=== PATIENT | female | born 1955 ===

== ENCOUNTER 2024-07-29 01:43 | Inpatient (IN) | payer MEDICARE, SELFPAY ==
[2024-07-28 19:17] VITALS: BP 153/103
[2024-07-28 20:00] VITALS: BP 129/85
[2024-07-28 20:42] VITALS: BP 129/85
[2024-07-28] MEDS: DILAUDID 0.25 MG IV ×2 (20:45→23:51)
[2024-07-28] MEDS: ZOFRAN 4 MG IV (20:45)
[2024-07-28 21:00] VITALS: BP 140/83
[2024-07-28 21:04] LABS: % Basophils 0.4 % (0-2); % Eosinophils 0.1 % (0-6); % Immature Granulocytes 0.8 % (0-0.5); % Lymphocytes 7.9 % (20.5-51.1); % Monocytes 4.7 % (1.7-9.3); % Neutrophils 86.1 % (42.2-75.2); Absolute Basophils 0.1 10^3/uL (0-0.2); Absolute Immature Granulocytes 0.1 10^3/uL (0-0.05); Absolute Lymphocytes 1.2 10^3/uL (1.2-3.4); Absolute Monocytes 0.7 10^3/uL (0.1-0.6); Absolute Neutrophils 13.2 10^3/uL (1.4-6.5); Hematocrit 37.1 % (37.0-47.0); Hemoglobin 12.8 g/dL (12.0-16.0); Mean Corp Hgb Conc. 34.5 g/dL (33.0-37.0); Mean Corpuscular Hgb 27.3 pg (27.0-31.0); Mean Corpuscular Volume 79.1 fL (81.0-99.0); Mean Platelet Volume 8.6 fL (7.4-10.4); Nucleated Red Blood Cells % 0 %; Platelet Count 377 10^3/uL (130-400); Red Blood Cell Count 4.69 10^6/uL (4.20-5.40); Red Cell Dist. Width 16.3 % (11.5-14.5); White Blood Cell Count 15.4 10^3/uL (4.8-10.8)
[2024-07-28 21:29] LABS: ALT (SGPT) 22 U/L (0-35); AST (SGOT) 33 U/L (14-36); Albumin 4.6 g/dl (3.5-5.0); Alkaline Phosphatase 102 U/L (38-126); Blood Urea Nitrogen 12 mg/dl (7-17); Carbon Dioxide 23 mmol/L (22-30); Chloride 104 mmol/L (98-107); Estimated Creatinine Clearance 73 ml/min; Glucose 99 mg/dl (70-99); Potassium 3.7 mmol/L (3.5-5.1); Sodium 138 mmol/L (135-145); Total Bilirubin 0.5 mg/dl (0.2-1.3); Total Protein 7.3 g/dl (6.3-8.2); eGFR > 60.00
[2024-07-28 22:00] VITALS: BP 137/79
[2024-07-28 23:00] VITALS: BP 132/87
--- NOTE | 2024-07-28 23:16 | ED.GENMED ---
History of Present Illness
General
Chief Complaint: Fall
Time Seen by Provider: 07/28/24 22:25
History of Present Illness
History of Present Illness:
Patient is a 69-year-old woman presenting to the emergency department after a fall. Patient states that she had a mechanical fall while putting on her shoes. She did not hit her head or lose consciousness. She is not on blood thinners. She was
having severe left thigh pain and left wrist pain. No numbness tingling. She does state that she has had bilateral knee replacement in the past before though the orthopedic surgeon is now in [place].
Phy Exam
Physical Exam
Physical Exam:
GENERAL: no acute distress
HEENT: atraumatic, extraocular muscles intact, no other obvious trauma
NECK: no midline tenderness, normal range of motion
BACK: no midline tenderness, no other obvious trauma
CHEST: no tenderness, no other obvious trauma
LUNGS: clear to auscultation bilaterally
CARDIOVASCULAR: regular rate and rhythm
ABDOMEN: soft, non-tender, no masses, no other obvious trauma
PELVIS: stable, no obvious injury
EXTREMITIES: Left wrist with tenderness to palpation over the radius, 2+ radial pulse, normal cap refill. Left thigh with tenderness over the mid thigh, no tenderness to the hip knee or ankle. Distal pulses intact. Otherwise moving all
extremities, distal pulses intact, no other obvious trauma
NEUROLOGIC: awake, alert x 3, no focal deficits
Course
Orders/Labs/Results
Orders:
Orders
07/28/24 20:14
Acetaminophen [Tylenol] 1,000 mg PO NOW STA
CR Femur - Left Min 2 Vw Urgent
Comment:
Reason For Exam: fall
CR Hip - LT w/wo Pel 2-3 Vw* Urgent
Comment:
Reason For Exam: fall
Include a pelvis x-ray?: Yes
CR Wrist - Left Min 3 Views Urgent
Comment:
Reason For Exam: fall
07/28/24 20:39
HYDROmorphone [Dilaudid] 0.25 mg IV NOW STA
07/28/24 20:41
Ondansetron Injectable [Zofran] 4 mg .ROUTE .STK-MED ONE
07/28/24 20:44
Ondansetron Injectable [Zofran] 4 mg IV NOW STA
07/28/24 20:55
Type And Crossmatch [Type+Screen] Urgent
Complete Blood Count/With Diff Urgent
Comprehensive Metabolic Panel Urgent
07/28/24 22:01
ABO2 Urgent
BBK Wristband Number:
Associate notified that ABO2 has been ordered: [id number]
Date: 07/28/24
Time: 21:52
Archeologist ID: [id number]
07/28/24 23:06
Sling Left-Treatment ONCE
HYDROmorphone [Dilaudid] 0.25 mg IV NOW STA
Abnormal Lab Results
07/28/24
20:55
WBC 15.4 H 10^3/uL
(4.8-10.8)
MCV 79.1 L fL
(81.0-99.0)
RDW 16.3 H %
(11.5-14.5)
Abs Immat Gran (auto) 0.1 H 10^3/uL
(0-0.05)
Absolute Neuts (auto) 13.2 H 10^3/uL
(1.4-6.5)
Absolute Monos (auto) 0.7 H 10^3/uL
(0.1-0.6)
Immature Gran % 0.8 H %
(0-0.5)
Neutrophils % 86.1 H %
(42.2-75.2)
Lymphocytes % 7.9 L %
(20.5-51.1)
07/28/24 20:55
07/28/24 20:55
Vital Signs
Initial and Last Documented VS:
Initial Vital Signs
Temp Pulse Resp
98.2 F 115 20
07/28/24 19:15 07/28/24 19:15 07/28/24 19:15
Last Documented Vital Signs
Temp Pulse Resp BP Pulse Ox
98.2 F 107 20 129/85 98
07/28/24 19:15 07/28/24 20:42 07/28/24 20:42 07/28/24 20:42 07/28/24 20:09
MDM/Problems Addressed
Differential Diagnosis Includes:
Patient is a 69-year-old woman presenting to the emergency department with a mechanical fall with left wrist and left thigh pain. On arrival vitals are unremarkable exam does show left wrist tenderness as well as left thigh tenderness. Concern for
fracture. Less likely to be dislocation of the wrist. X-ray obtained prior to my evaluation. Per my interpretation there is a impacted fracture of the left radius as well as a midshaft femur fracture. Will place patient in sugar-tong splint. I
did discuss with Dr. Carty who plans for OR tomorrow. Discussed with hospitalist who accepts patient to their service.
*Critical Care Note
Total Time (30-74mins, 75-104mins- exclusive of procedures): Not Applicable
ED Attending Note
-
Portions of this chart may have been created with voice recognition software.� Occasional wrong word or��sound alike� substitutions may have occurred due to the inherent limitations of voice recognition software.
Discharge Plan
Departure
Patient Disposition: Admit
Date of Disposition: 07/28/24
Time of Disposition: 23:11
Presentation/result/management discussed w/ accepting MD/DO: Hospitalist
Discharge Problem:
Femur fracture, left
Referrals:
Aden Hi MD [Family Provider] -
Interventions
Interventions:
*Risk Screen - Suicide Last Done: 07/28/24 19:15
*General Assessment Last Done: 07/28/24 19:15
*Neglect/Abuse Screening Last Done: 07/28/24 19:15
*ED- Fall Risk Assessment Last Done: 07/28/24 19:15
*ED COVID-19 Vaccine History Last Done: 07/28/24 19:15
ED-Musculoskeletal Assessment Last Done: 07/28/24 19:59
ED- Neurological Assessment Last Done: 07/28/24 20:09
ED-Skin Assessment Last Done: 07/28/24 20:09
Discharge Date and Time
Print Language: MOHAWK
--- NOTE | 2024-07-28 23:34 | HPS.HSE ---
Addendum entered and electronically signed by Hattie Oropeza MD 07/28/24 23:38:
History of merelgia peresthetica which she thinks contributed to the fall.
Original Note:
Family Physician
-
Family Physician: Aden Hi
Chief Complaint
-
fall
History of Present Illness
69-year-old female presenting after a fall. She had a mechanical fall putting on her shoes. She did not hit her head or lose consciousness. She is having severe left thigh pain and left wrist pain. No numbness or tingling.
She denies any prior issues with anesthesia. Denies chest pain or shortness of breath.
She denies smoking or alcohol use.
Medical History
Past Medical History
Past Medical History: Reports Other (Hypothyroidism, chronic rhinitis, lumbar spinal stenosis, cervical stenosis, osteopenia, anxiety, GERD)
Past Surgical History: Reports Tonsilectomy (Lumbar vertebroplasty, index finger fusions,)
Social History
Tobacco: Non-smoker
Alcohol: None
Drug: None
Family History
Family History: Not pertinent
Allergies / Home Medications
Allergies reflects when Allergies were last updated in [facility].
Home Medications with original date entered in [facility]
Allergy/Medication List:
Allergies
Allergy/AdvReac Type Severity Reaction Status Date / Time
No Known Allergies Allergy Unverified 07/28/24 19:23
Review of Systems
-
History Source: Patient
A 12 point ROS was completed and negative except as noted: Yes
Constitutional: Reports No Symptoms
EENT: Reports No Symptoms
Respiratory: Reports No Symptoms
Cardiac: Reports No Symptoms
Abdomen/GI: Reports No Symptoms
: Reports No Symptoms
Musculoskeletal: Reports No Symptoms
Skin: Reports No Symptoms
Neurological: Reports No Symptoms
Endocrine: Reports No Symptoms
Hematologic/Lymphatic: Reports No Symptoms
Psych: Reports No Symptoms
Physical Exam
Vital Signs
Vital Signs
Temp Pulse Resp BP Pulse Ox
98.2 F 107 20 129/85 98
07/28/24 19:15 07/28/24 20:42 07/28/24 20:42 07/28/24 20:42 07/28/24 20:09
Physical Exam
General: Well Developed, Well Nourished and No Apparent Distress
HEENT: NormoCephalic, Moist mucous membranes and Atraumatic
Respiratory: Clear
Cardiac: S1/S2 and Regular Rhythm; No Murmur or Rub
GI: Soft, Non Tender, Non Distended and Normal Bowel Sounds; No Organomegaly
Rectal: Deferred by Provider
Musculoskeletal: No Clubbing, No Cyanosis and No Edema
Skin: No Rash
Neuro: Nonfocal/grossly intact
Laboratory Results
-
07/28/24 20:55
07/28/24 20:55
Laboratory Results
Total Bilirubin 0.5 mg/dl (0.2-1.3) 07/28/24 20:55
AST 33 U/L (14-36) 07/28/24 20:55
ALT 22 U/L (0-35) 07/28/24 20:55
Alkaline Phosphatase 102 U/L (38-126) 07/28/24 20:55
Data Reviewed
-
Lab Data: Labs Reviewed by me
Old Records: Reviewed
Impression/Plan
-
IMPRESSION:
PLAN:
# Femoral diaphyseal fracture
- N.p.o. postmidnight
- Ortho consulted plan for surgery tomorrow
- Tylenol, naproxen, Dilaudid for pain
- Low risk for post cardiac complications after surgery
# Nondisplaced extra-articular impaction fracture of the left distal radius
- Sling placed
Hypothyroidism
- Continue levothyroxine
Chronic rhinitis
- Continue Flonase, Zyrtec
Lumbar spinal stenosis status post vertebroplasty
- Continue pregabalin
Cervical stenosis
Index finger effusions
Osteopenia
GERD
- Continue Protonix
Anxiety
- Continue Ativan
Full code
DVT prophylaxis�SCDs
N.p.o. past midnight
[2024-07-29] VITALS (15 sets, daily range): BP systolic 108–170; BP diastolic 70–94; BMI 27.9
[2024-07-29] MEDS: ZOFRAN 4 MG IV ×3 (00:06→15:43)
--- NOTE | 2024-07-29 02:30 | PTCARENOTE ---
PT a 69-year-old female arrived from ED at 01:56 from ED. Pt sustained a femoral diaphyseal fracture & a left nondisplaced extra-articular impaction fracture of the distal radius, splint placed after a mechanical fall at home. PMH Hypothyroidism,
chronic rhinitis, lumbar spinal stenosis, cervical stenosis, osteopenia, anxiety, GERD Past Surgical History: Tonsillectomy Lumbar vertebroplasty, index finger fusions. Ortho consult ordered Pt N.P.O. with oral meds and slips of clears. Pt AOx3, on
a static overlay, bed in a low position, call light in place, care on-going.
[2024-07-29] MEDS: ATIVAN 1 MG PO ×2 (03:21→22:19)
[2024-07-29] MEDS: SYNTHROID 75 MCG PO (05:00)
[2024-07-29 07:55] LABS: % Basophils 0.6 % (0-2); % Eosinophils 1.1 % (0-6); % Immature Granulocytes 0.4 % (0-0.5); % Lymphocytes 23.5 % (20.5-51.1); % Monocytes 6.7 % (1.7-9.3); % Neutrophils 67.7 % (42.2-75.2); Absolute Basophils 0.1 10^3/uL (0-0.2); Absolute Eosinophils 0.1 10^3/uL (0-0.7); Absolute Lymphocytes 2.4 10^3/uL (1.2-3.4); Absolute Monocytes 0.7 10^3/uL (0.1-0.6); Absolute Neutrophils 6.8 10^3/uL (1.4-6.5); Hemoglobin 12.8 g/dL (12.0-16.0); Mean Corp Hgb Conc. 34.6 g/dL (33.0-37.0); Mean Corpuscular Hgb 27.5 pg (27.0-31.0); Mean Corpuscular Volume 79.4 fL (81.0-99.0); Mean Platelet Volume 8.8 fL (7.4-10.4); Nucleated Red Blood Cells % 0 %; Platelet Count 360 10^3/uL (130-400); Red Blood Cell Count 4.66 10^6/uL (4.20-5.40); Red Cell Dist. Width 15.9 % (11.5-14.5)
--- NOTE | 2024-07-29 08:17 | CON.ORTHO ---
Consultation
-
Date/Time Consultation Requested: 07/29/24 02:20
Date/Time Consultation Performed: 07/29/24 07:45
Requesting Provider: Dr. Hattie Oropeza
Performing Provider: FERNANDO Butler
Reason for Consultation: Left femur fracture, left distal radius fracture
Consultation - Orthopedics
History
69-year-old female presented to outside hospital after mechanical fall sustained in her home. She reports immediate pain to her left thigh and left wrist and was transported EMS secondary to the inability bear weight and severe pain. Radiographs
show displaced femoral diaphyseal fracture as well as a left distal radius fracture. She was placed to a splint for her left upper extremity. She denies any prodromal pain. Denies any current paresthesias. History of bilateral knee replacement
left side 2003 and right side 2010. Reports closed injury denies other injury sustained
Allergies / Home Medications
Past Medical History
Past Medical History: Reports Other (Hypothyroidism, chronic rhinitis, lumbar spinal stenosis, cervical stenosis, osteopenia, anxiety, GERD)
Past Surgical History: Reports Tonsilectomy (Lumbar vertebroplasty, index finger fusions,) Left total knee replacement 2003, right total knee replacement 2010
Social History
Tobacco: Non-smoker
Alcohol: None
Drug: None
Family History
Family History: Not pertinent
Allergies / Home Medications
Allergies reflects when Allergies were last updated in [facility].
Home Medications with original date entered in [facility]
Allergy/Medication List:
Allergies
Allergy/AdvReac Type Severity Reaction Status Date / Time
No Known Allergies Allergy Unverified 07/28/24 19:23
�Medication �Instructions �Recorded
cetirizine 10 mg tablet (Zyrtec) 10 mg PO DAILY 07/28/24
erythromycin 5 mg/gram (0.5 %) eye 1 applic RIGHT EYE BID 07/28/24
ointment
fluticasone propionate 50 1 spray intranasal BID 07/28/24
mcg/actuation nasal
spray,suspension
ibuprofen-diphenhydramine citrate 0.5 tab PO HSPRN PRN mild pain 07/28/24
200 mg-38 mg tablet (Advil PM)
levothyroxine 75 mcg tablet 75 mcg PO DAILY 07/28/24
lorazepam 1 mg tablet 1 mg PO HS 07/28/24
naproxen 500 mg tablet 500 mg PO DAILY 07/28/24
omeprazole 40 mg capsule,delayed 40 mg PO DAILY 07/28/24
release
pregabalin 150 mg capsule 150 mg PO BID 07/28/24
Vital Signs / Lab Results
Temp Pulse Resp BP Pulse Ox
98.9 F 80 20 150/86 100
07/29/24 02:13 07/29/24 02:13 07/29/24 02:13 07/29/24 02:13 07/29/24 02:30
PHYSICAL EXAM:
Patient is well-nourished well-developed no acute distress conscious and oriented
Examination of the left lower extremity shows skin is intact. Her leg is in a shortened externally rotated position. The sensation motor function intact L3-S1. Nontender about her left knee
Examination of the left upper extremity showed an intact sugar-tong splint. Exposed fingers demonstrate intact motor and sensory function nontender about the shoulder
IMAGING:
X-rays taken of the left hip and femur show displaced diaphyseal femur fracture with left total knee arthroplasty without evidence of hardware complication
07/29/24 07:17
Assessment / Plan
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
Images were shown and discussed with the patient regarding their injury. The injury and respective operative and nonoperative interventions reviewed with the patient and respective family members to include the risks and benefits rehabilitation and
prognosis for each. The treatment and operative technique, postoperative follow-up, postoperative rehabilitation and surgical prognosis was reviewed in detail. After thorough discussion of potential treatment options the patient and respective
family members wish to proceed with operative intervention.
Patient is planned for OR today for left femur reduction internal fixation with Dr. Carty. Due to availability of her hand surgeon regarding her left distal radius this will be tentative for likely Thursday for open reduction internal fixation with
Dr. Gallegos
- 2 separate consents were completed and placed in the chart
- NPO
- Type and screen on file
- Antibiotics on-call the OR
-NWB to LUE; maintain current splint; elevation to reduce swelling
The patient was seen and evaluated by Dr. Carty who agrees with the assessment and plan
[2024-07-29 08:22] LABS: ALT (SGPT) 22 U/L (0-35); AST (SGOT) 39 U/L (14-36); Albumin 3.7 g/dl (3.5-5.0); Alkaline Phosphatase 84 U/L (38-126); Blood Urea Nitrogen 10 mg/dl (7-17); Calcium 9.3 mg/dl (8.4-10.2); Carbon Dioxide 23 mmol/L (22-30); Chloride 110 mmol/L (98-107); Estimated Creatinine Clearance 53 ml/min; Glucose 99 mg/dl (70-99); Potassium 4.1 mmol/L (3.5-5.1); Sodium 141 mmol/L (135-145); Total Bilirubin 0.7 mg/dl (0.2-1.3); Total Protein 6.4 g/dl (6.3-8.2); eGFR > 60.00
[2024-07-29] MEDS: PROTONIX 40 MG PO (08:51)
[2024-07-29] MEDS: LYRICA 150 MG PO ×2 (08:51→20:52)
[2024-07-29] MEDS: ZYRTEC 10 MG PO (08:51)
[2024-07-29] MEDS: NAPROSYN PO (08:52)
[2024-07-29] MEDS: DILAUDID 0.5 MG IV ×3 (08:54→19:54)
[2024-07-29] MEDS: ERYTHROMYCIN 0.5% OPHTHALMIC OINTMENT RIGHT EYE (08:59)
--- NOTE | 2024-07-29 09:15 | W.PN.HOSP.TC ---
Today's Communication/Plan
-
Add Zofran IV as needed
OR today
Assessment / Plan
Assessment / Plan
Gen-AAOx3, NAD
HEENT-NC, AT, anicteric, clear oral mm
Neck-supple
CV-reg, no M, +S1/S2
Lungs-clear B/L
Abd-soft, NT, ND
Ext-no edema
Musculoskeletal-no cyanosis, clubbing
Skin-warm and dry
Neuro-grossly non-focal
Psych-calm, cooperative
Acute traumatic displaced left femoral diaphysis fracture -due to trauma from fall, underlying osteoporosis.
Medically stable for surgery today. NPO. Continue analgesics. Complaining of nausea due to IV Dilaudid, Zofran ordered as needed.
Acute traumatic nondisplaced left distal radius fracture -due to fall, osteoporosis. Anticipate surgical correction on Thursday as per orthopedics.
Osteoporosis -she gets yearly infusions of zoledronic acid. On vitamin D 50,000 units every other week.
Hypothyroidism -levothyroxine.
Chronic rhinitis
Lumbar/cervical spinal stenosis
GERD
Anxiety disorder
Full code
Anticipated Discharge: > 48 hours
Subjective/Interval History
-
Date of Service: July 29, 2024
Patient seen and examined. Complaining of left leg pain. Complaining of Tanner wrap on arm being too tight.
Objective Data
-
Labs:
Laboratory Results
07/28/24 07/29/24
20:55 07:17
WBC 10.0
Hgb 12.8
Hct 37.0
Plt Count 360
Sodium 138 141
Potassium 3.7 4.1
Chloride 104 110 H
Carbon Dioxide 23 23
BUN 12 10
Creatinine 0.7 0.7
Glucose 99 99
Calcium 10.0 9.3
Total Bilirubin 0.5 0.7
AST 33 39 H
ALT 22 22
Alkaline Phosphatase 102 84
Vital Signs:
Vital Signs
Temp Pulse Resp BP Pulse Ox
98.1 F 81 16 170/89 97
07/29/24 08:00 07/29/24 08:00 07/29/24 08:00 07/29/24 08:00 07/29/24 08:00
I&O
07/28/24 07/29/24 07/30/24
06:59 06:59 06:59
Intake Total 0 / 0
Output Total 0 / 0
Balance 0 / 0
Review of Systems
-
History Source: Patient
All other systems: Reviewed and negative
--- NOTE | 2024-07-29 10:26 | CM ---
Patient seen at bedside. 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 Additional surgery next week per both patient and physician. Patient states she lives in a condo with 2 floors and has a first floor master. Patient stated
that her PCP is Dr. Peck and she uses the [facility] in [place]. Patient plan is to go to [facility] if possible at [facility] and then home. Patient daughter and son in law are helpful but work during the day. Patient has a walker, cane,
comode and hip kit. 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 CM spoke with [facility] liaison to assess patient and will send referral for review. Physician to request referral for PM&R. CM will continue to follow for discharge planning needs.
Plan; referral to [facility] pending acceptance watch for further needs.
[2024-07-29] MEDS: DEMEROL 12.5 MG IV (19:39)
[2024-07-29] MEDS: NSS 1000 IV (20:10)
--- NOTE | 2024-07-29 20:30 | PTCARENOTE ---
Patient returned from PACU via bed, post op L femur ORIF. Drsg x3 intact, proximal and distal with scant drainage. AAOx3, but drowsy. IVF infusing per order, pt on 2LNC. Assessment ongoing.
[2024-07-29] MEDS: ASPIRIN 325 MG PO (20:51)
[2024-07-29] MEDS: ERYTHROMYCIN 0.5% OPHTHALMIC OINTMENT 1 APPLIC RIGHT EYE (20:53)
[2024-07-29] MEDS: SENOKOT 17.2 MG PO (20:53)
[2024-07-29] MEDS: COLACE 100 MG PO (20:53)
[2024-07-30] VITALS (8 sets, daily range): BP systolic 104–146; BP diastolic 63–89; PULSE 93
[2024-07-30] MEDS: ANCEF 5 IV ×2 (00:19→10:33)
[2024-07-30] MEDS: SYNTHROID 75 MCG PO (05:08)
[2024-07-30 07:39] LABS: Hematocrit 33.7 % (37.0-47.0); Hemoglobin 11.3 g/dL (12.0-16.0)
[2024-07-30 08:01] LABS: Blood Urea Nitrogen 15 mg/dl (7-17); Carbon Dioxide 22 mmol/L (22-30); Chloride 108 mmol/L (98-107); Estimated Creatinine Clearance 53 ml/min; Glucose 144 mg/dl (70-99); Potassium 3.9 mmol/L (3.5-5.1); Sodium 137 mmol/L (135-145); eGFR > 60.00
[2024-07-30] MEDS: LYRICA 150 MG PO ×2 (09:09→20:27)
[2024-07-30] MEDS: SENOKOT 17.2 MG PO ×2 (09:09→20:27)
[2024-07-30] MEDS: ZYRTEC 10 MG PO (09:10)
[2024-07-30] MEDS: COLACE 100 MG PO ×2 (09:10→20:27)
[2024-07-30] MEDS: ASPIRIN 325 MG PO (09:10)
[2024-07-30] MEDS: PROTONIX 40 MG PO (09:10)
[2024-07-30] MEDS: NAPROSYN 500 MG PO (09:10)
[2024-07-30] MEDS: ERYTHROMYCIN 0.5% OPHTHALMIC OINTMENT 1 APPLIC RIGHT EYE ×2 (09:11→20:27)
--- NOTE | 2024-07-30 09:55 | W.PN.ORTHO ---
Today's Communication / Plan
-
69-year-old female POD #1 Left Femur Reduction Internal Fixation with Gamma Nail 07/29/[address] Carty. Also with left wrist nondisplaced, extra-articular impaction fracture of the distal radius.
- WBAT LLE. NWB LUE in sugar-tong splint. May consider platform walker for ambulatory assistance.
- PT/OT as tolerated.
- Aspirin 325mg once daily x 4 weeks for DVT prophylaxis.
- Hgb 11.3 this AM. Continue to monitor and trend.
- Ice and elevation for edema control. Pain control per primary team.
- Plan for left distal radius ORIF on Thursday under the direction of Dr. Gallegos. Consent completed in patient chart. NPO pMN 08/01/2024.
- Maintain left hip dressings x 7-10 days. [place] removed at 2 weeks post-op.
- Patient requesting [facility] at discharge. Consult placed to Dr. Thornton; also notified via [facility].
- Orthopedic surgery will continue to follow along.
Assessment
.
Distal Motor Intact: Yes
Dressing:
Primaseal dressing x 3 intact with scant contained bloody drainage.
Sugar-tong splint intact about LUE. Able to wiggle fingers. Capillary refill is less than 2 seconds.
Sensation intact to light touch.
Calf is soft and nontender to palpation.
Assessment:
POD #1 Left Femur Reduction Internal Fixation with Gamma Nail 07/29/[address] Carty.
Left wrist nondisplaced, extra-articular impaction fracture of the distal radius.
Plan
.
Surgery / Date: 07/29/2024 Left Femur Reduction Internal Fixation
DVT Prophylaxis: Aspirin
Activity:
Out of bed.
PT/OT as tolerated.
WBAT LLE, NWB LUE in sugar-tong splint.
Discharge Plan: Other
Discharge Information:
Patient requesting [facility].
Subjective
.
.:
Patient resting comfortably in bed. Reports that her pain is well controlled. Denies any new complaints or concerns at this time. Plan for left distal radius ORIF early next week.
Vital Signs and Labs
.
Vital Signs and Labs:
Lab Results
07/30/24 06:17
07/30/24 06:17
Temp Pulse Resp BP Pulse Ox
98.2 F 80 16 108/72 98
07/30/24 07:30 07/30/24 07:30 07/30/24 07:30 07/30/24 07:30 07/30/24 07:30
--- NOTE | 2024-07-30 11:02 | W.PN.HOSP.TC ---
Today's Communication/Plan
-
Continue current care
Assessment / Plan
Assessment / Plan
Gen-AAOx3, NAD
HEENT-NC, AT, anicteric, clear oral mm
Neck-supple
CV-reg, no M, +S1/S2
Lungs-clear B/L
Abd-soft, NT, ND
Ext-no edema
Musculoskeletal-no cyanosis, clubbing
Skin-warm and dry
Neuro-grossly non-focal
Psych-calm, cooperative
Acute traumatic displaced left femoral diaphysis fracture -due to trauma from fall, underlying osteoporosis. Stable postop left femur long gamma nail with distal interlocking x 07/29.
Continue PT/OT. Aspirin for DVT prophylaxis per orthopedics. Continue analgesics.
Acute traumatic nondisplaced left distal radius fracture -due to fall, osteoporosis. Anticipate surgical correction on Thursday as per orthopedics.
Osteoporosis -she gets yearly infusions of zoledronic acid. On vitamin D 50,000 units every other week.
Hypothyroidism -levothyroxine.
Chronic rhinitis
Lumbar/cervical spinal stenosis
GERD
Anxiety disorder
Full code
Dispo -anticipate acute rehab next week after repair of radial fracture.
Anticipated Discharge: > 48 hours
Subjective/Interval History
-
Date of Service: July 30, 2024
Patient seen and examined. No complaints.
Objective Data
-
Labs:
Laboratory Results
07/30/24
06:17
Hgb 11.3 L
Hct 33.7 L
Sodium 137
Potassium 3.9
Chloride 108 H
Carbon Dioxide 22
BUN 15
Creatinine 0.7
Glucose 144 H
Calcium 8.0 L
Vital Signs:
Vital Signs
Temp Pulse Resp BP Pulse Ox
98.2 F 80 16 108/72 98
07/30/24 07:30 07/30/24 07:30 07/30/24 07:30 07/30/24 07:30 07/30/24 07:30
I&O
07/29/24 07/30/24 07/31/24
06:59 06:59 06:59
Intake Total 0 / 0 1060 / 1060
Output Total 0 / 0 1025 / 1025
Balance 0 / 0 35 / 35
Review of Systems
-
History Source: Patient
All other systems: Reviewed and negative
[2024-07-30] MEDS: NSS IV (11:06)
[2024-07-30] MEDS: TYLENOL 650 MG PO ×2 (15:17→22:26)
[2024-07-30] MEDS: ATIVAN 1 MG PO (22:23)
[2024-07-31] MEDS: SYNTHROID 75 MCG PO (06:15)
[2024-07-31 07:44] VITALS: BP 143/78
[2024-07-31] MEDS: TYLENOL PO (08:31)
[2024-07-31] MEDS: ZYRTEC 10 MG PO (08:32)
[2024-07-31] MEDS: PROTONIX 40 MG PO (08:32)
[2024-07-31] MEDS: SENOKOT 17.2 MG PO (08:32)
[2024-07-31] MEDS: COLACE 100 MG PO (08:32)
[2024-07-31] MEDS: NAPROSYN PO (08:32)
[2024-07-31] MEDS: ERYTHROMYCIN 0.5% OPHTHALMIC OINTMENT RIGHT EYE ×3 (08:32→23:52)
[2024-07-31] MEDS: ASPIRIN 325 MG PO (08:32)
[2024-07-31] MEDS: LYRICA 150 MG PO ×2 (08:32→20:43)
--- NOTE | 2024-07-31 10:10 | W.PN.ORTHO ---
Today's Communication / Plan
-
69-year-old female POD #2 Left Femur Reduction Internal Fixation with Gamma Nail 07/29/[address] Carty. Also with left wrist nondisplaced, extra-articular impaction fracture of the distal radius.
- WBAT LLE. NWB LUE in sugar-tong splint; splint readjusted today and extra padding applied. May consider platform walker for ambulatory assistance.
- PT/OT as tolerated.
- Aspirin 325mg once daily x 4 weeks for DVT prophylaxis.
- Ice therapy and elevation for edema control. Pain control per primary team.
- Plan for left distal radius ORIF on Thursday under the direction of Dr. Gallegos. Consent completed in patient chart. NPO pMN 08/01/2024. Case posted with OR front attendant. Pre-op ABX OCTOR.
- Maintain left hip dressings x 7-10 days post-op. [place] removed at 2 weeks post-op.
- Patient requesting [facility] at discharge. Consult placed to Dr. Thornton; also notified via [facility]. Appreciate CM.
- Orthopedic surgery will continue to follow along.
Assessment
.
Distal Motor Intact: Yes
Dressing:
Primaseal dressing x 3 intact with scant contained bloody drainage.
Sugar-tong splint intact about LUE. Able to wiggle fingers. Capillary refill is less than 2 seconds.
Sensation intact to light touch.
Calf is soft and nontender to palpation. Able to plantarflex and dorsiflex left ankle.
Assessment:
1) POD #2 Left Femur Reduction Internal Fixation with Gamma Nail 07/29/[address] Carty.
2) Left wrist nondisplaced, extra-articular impaction fracture of the distal radius.
Plan
.
Surgery / Date: 07/29/2024 Left Femur Reduction Internal Fixation
DVT Prophylaxis: Aspirin
Activity:
Out of bed.
PT/OT as tolerated.
WBAT LLE, NWB LUE in sugar-tong splint.
Discharge Plan: Rehab
Discharge Information:
Patient requesting [facility] at D/C. Appreciate CM.
Subjective
.
.:
Patient resting comfortably in bedside chair. Denies any new complaints or concerns at this time. Plan for left distal radius ORIF Thursday under the direction of Dr. Gallegos.
Vital Signs and Labs
.
Vital Signs and Labs:
Lab Results
07/30/24 06:17
07/30/24 06:17
Temp Pulse Resp BP Pulse Ox
98.1 F 76 16 143/78 100
07/31/24 07:44 07/31/24 07:44 07/31/24 07:44 07/31/24 07:44 07/31/24 07:44
--- NOTE | 2024-07-31 11:17 | W.PN.HOSP.TC ---
Today's Communication/Plan
-
Bowel regimen
Continue PT/OT
Assessment / Plan
Assessment / Plan
Gen-AAOx3, NAD
HEENT-NC, AT, anicteric, clear oral mm
Neck-supple
CV-reg, no M, +S1/S2
Lungs-clear B/L
Abd-soft, NT, ND
Ext-no edema
Musculoskeletal-no cyanosis, clubbing
Skin-warm and dry
Neuro-grossly non-focal
Psych-calm, cooperative
Acute traumatic displaced left femoral diaphysis fracture -due to trauma from fall, underlying osteoporosis. Stable postop left femur long gamma nail with distal interlocking x , 07/29.
Continue PT/OT. Aspirin for DVT prophylaxis per orthopedics. Continue analgesics.
Acute traumatic nondisplaced left distal radius fracture -due to fall, osteoporosis. Anticipate surgical correction on Wednesday 08/02 as per orthopedics.
Osteoporosis -she gets yearly infusions of zoledronic acid. On vitamin D 50,000 units every other week.
Hypothyroidism -levothyroxine.
Chronic rhinitis
Lumbar/cervical spinal stenosis
GERD
Anxiety disorder
Full code
Dispo -anticipate acute rehab next week after repair of radial fracture.
Anticipated Discharge: > 48 hours
Subjective/Interval History
-
Date of Service: July 31, 2024
Patient seen and examined. Pain is controlled.
Objective Data
-
Vital Signs:
Vital Signs
Temp Pulse Resp BP Pulse Ox
98.1 F 76 16 143/78 100
07/31/24 07:44 07/31/24 07:44 07/31/24 07:44 07/31/24 07:44 07/31/24 07:44
I&O
07/30/24 07/31/24 08/01/24
06:59 06:59 06:59
Intake Total 1060 / 1060 1659
Output Total 1025 / 1025
Balance 1659
Review of Systems
-
History Source: Patient
All other systems: Reviewed and negative
[2024-07-31] MEDS: MIRALAX 17 GRAMS PO (11:31)
[2024-07-31 15:38] VITALS: BP 115/69
[2024-07-31] MEDS: ATIVAN 1 MG PO (20:44)
[2024-07-31] MEDS: TYLENOL 650 MG PO (20:44)
[2024-07-31] MEDS: COLACE PO (20:53)
[2024-07-31] MEDS: SENOKOT PO (20:53)
[2024-07-31] MEDS: ROXICODONE 5 MG PO (21:52)
[2024-07-31 23:25] VITALS: BP 108/67
[2024-07-31] MEDS: NAPROSYN 500 MG PO (23:49)
[2024-08-01] MEDS: SYNTHROID 75 MCG PO (07:26)
[2024-08-01 07:45] VITALS: BP 125/68
[2024-08-01] MEDS: PROTONIX 40 MG PO (08:28)
[2024-08-01] MEDS: ASPIRIN 325 MG PO (08:28)
[2024-08-01] MEDS: NAPROSYN 500 MG PO (08:28)
[2024-08-01] MEDS: ERYTHROMYCIN 0.5% OPHTHALMIC OINTMENT RIGHT EYE (08:29)
[2024-08-01] MEDS: LYRICA 150 MG PO ×2 (08:29→20:04)
[2024-08-01] MEDS: COLACE 100 MG PO ×2 (08:29→20:04)
[2024-08-01] MEDS: ZYRTEC 10 MG PO (08:30)
[2024-08-01] MEDS: SENOKOT PO ×2 (08:30→20:05)
--- NOTE | 2024-08-01 08:59 | W.PN.UPDATE ---
Update Note
Progress Note Update
P.atient resting comfortably in bed. Now POD#3 gamma nail fixation of her left femur (August 05- Carloz). Afeb. Dressings x [address] left thigh with minimal strikethrough distally. PT/OT going well. WBAT LLE on platform walker. DNVI LLE. Also
with impacted extra-articular nondisplaced fracture of the LEFT distal radius. Remains in a sugar-tong splint. Desires fixation of her left wrist, which has been tentatively scheduled for tomorrow (Thursday) under the direction of
Rosy (ORIF). She has been previously consented. Remain in splint, NWB for now LUE (other than platform walker). DNVI LUE. OR aware. NPO pMN tonight.
--- NOTE | 2024-08-01 09:18 | CM ---
Reviewed the chart notes. Patient is scheduled to go to OR tomorrow for fixation of her left wrist. PMR consult pending. CM continues to be available to patient/family and is monitoring medical plan for needs at discharge.
Plan: [facility]. [facility]eep reviewing.
[2024-08-01 13:05] VITALS: BP 131/80; PULSE 65; O2SAT 94
--- NOTE | 2024-08-01 13:54 | W.PN.HOSP.TC ---
Today's Communication/Plan
-
Assessment / Plan
Assessment / Plan
Gen-AAOx3, NAD
HEENT-NC, AT, anicteric, clear oral mm
Neck-supple
CV-reg, rate controlled around 80
Lungs-no accessory muscle use, no increased work of breathing, no audible wheezing
Abd-nondistended, no active vomiting
Ext-no edema
Musculoskeletal-no cyanosis, left upper extremity forearm splint in place
Skin-warm and dry
Neuro-grossly non-focal
Psych-calm, cooperative
Acute traumatic displaced left femoral diaphysis fracture -due to trauma from fall, underlying osteoporosis. Stable postop left femur long gamma nail with distal interlocking x 2, 07/29.
Continue PT/OT. Aspirin for DVT prophylaxis per orthopedics. Continue analgesics, ambulating with platform walker, anticipate SNF for rehab
Acute traumatic nondisplaced left distal radius fracture -due to fall, osteoporosis. Anticipate surgical correction on Wednesday 08/02 as per orthopedics, nonweightbearing left upper extremity for now
Osteoporosis -she gets yearly infusions of zoledronic acid. On vitamin D 50,000 units every other week.
Hypothyroidism -levothyroxine.
Chronic rhinitis
Lumbar/cervical spinal stenosis
GERD
Anxiety disorder
Full code
Dispo -anticipate acute rehab next week after repair of radial fracture.
Anticipated Discharge: 24 - 48 hours
Subjective/Interval History
-
Date of Service: August 01, 2024
Patient was seen and examined at bedside this morning. She is feeling generally well. Awaiting left wrist ORIF tomorrow.
Objective Data
-
Vital Signs:
Vital Signs
Temp Pulse Resp BP Pulse Ox
97.9 F 80 16 125/68 98
08/01/24 07:45 08/01/24 07:45 08/01/24 07:45 08/01/24 07:45 08/01/24 08:25
I&O
07/31/24 08/01/24 08/02/24
06:59 06:59 06:59
Intake Total 1660 / 1660 480 / 480
Balance 1660 / 1660 480 / 480
Review of Systems
-
History Source: Patient
All other systems: Reviewed and negative
Physical Exam
-
General: No Apparent Distress
[2024-08-01 15:30] VITALS: BP 117/69
--- NOTE | 2024-08-01 16:30 | CON.MD ---
Documented by User: Letty Hummel PA-C 08/01/24 16:58
Consultation - Medical
-
Referring Provider: Shon Alegre
Chief Complaint: Ambulatory dysfunction, status post left hip ORIF
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
with acute traumatic displaced left femoral diaphysis fracture above her left total knee replacement and radial fracture due to a traumatic fall. On 07/29/2024 she underwent left femur reduction internal fixation with gamma nail x [address] Trivedi
Carloz. Anticipated surgical correction for nondisplaced left distal radius fracture scheduled for 08/[address] Gallegos. Per Ortho�she is weightbearing as tolerated on the left lower extremity, nonweightbearing on the left upper extremity in
sugar-tong splint. May consider platform walker for ambulatory assistance. DVT prophylaxis scheduled for aspirin 325 twice daily x 4 weeks. Ice therapy and elevation for edema control.
Past Medical History: osteoporosis on yearly infusion of Zoledronic acid and vitamin D 50,000 units every other week, anxiety, lumbar and cervical stenosis, GERD, hypothyroidism, chronic rhinitis)
Procedure History: Left femur long gamma nail with distal interlocking x 2,
Family History: non contributory
Social History:
Functional Level Premorbidly: Independent with all activities
Functional Level Currently: Eating�set up, grooming, toileting�min assist, lower extremity self-care�mod assist, toilet transfer�min assist, patient ambulated 25 feet and 10 feet x 2 with HW and min assist/contact-guard
Tobacco: Denies
Alcohol: Denies
Drug use: Denies
Lives with: alone
24-hour assistance available:
Number of floors: Multilevel
# steps to enter: 3
# steps to second floor:FF
Potential First floor set up:
Driving: yes
Occupation: works dye expert as RN
Allergies:
Allergy/AdvReac Type Severity Reaction Status Date / Time
No Known Allergies Allergy Unverified 07/28/24 19:23
Review of Systems:
Constitutional: (x) Normal _
Eye: (x) Normal _
Ear/Nose/Throat: (x) Normal _
Respiratory: (x) Normal _
Cardiovascular: (x) Normal _
Gastrointestinal: (x) abNormal _GERD
Genitourinary: (x) Normal _
Musculoskeletal: (x) abNormal _left femoral shaft fracture status post ORIF, left hip pain, left wrist fracture
Integumentary: (x) Normal _
Neurologic: (x) Normal _
Psychiatric: (x) abNormal _anxiety
Endocrine: (x) Normal _
Hematologic/Lymphatic: (x) Normal _
Allergic/Immunologic: (x) Normal _
Medications:
Active Current Visit Medication List
Category Date Time Status
Acetaminophen [Tylenol] Med 07/29/24 02:20 Active
650 mg PO Q4HPRN PRN
Aspirin Med 07/29/24 18:00 Active
325 mg PO DAILY
CeFAZolin 2 GRAM [Ancef] Med 08/02/24 07:00 Active
2 grams in 10 ml IV PRE PROCEDURE
Cetirizine HCl [Zyrtec] Med 07/29/24 08:00 Active
10 mg PO DAILY
Docusate Sodium [Colace] Med 07/29/24 20:00 Active
100 mg PO BID
Erythromycin (Ilotycin) [Erythromycin 0.5% Ophthalmic Med 07/29/24 08:00 Active
Ointment]
1 applic RIGHT EYE BID
Flush (0.9% Sodium Chloride) [Flush (Nss)] Med 07/28/24 23:00 Active
See Dose Instructions IV PER PROTOCOL
HYDROmorphone [Dilaudid] Med 07/29/24 02:20 Active
0.5 mg IV Q4HPRN PRN
Levothyroxine [Synthroid] Med 07/29/24 06:00 Active
75 mcg PO DAILY @ 0600
Lorazepam [Ativan] Med 07/29/24 22:00 Active
1 mg PO HS
Mag Hydrox/Al Hydrox/Simeth [Maalox] Med 07/29/24 19:11 Active
30 ml PO Q4HPRN PRN
Naproxen [Naprosyn] Med 07/29/24 08:00 Active
500 mg PO DAILY
Ondansetron Injectable [Zofran] Med 07/29/24 09:02 Active
4 mg IV Q6HPRN PRN
Ondansetron Injectable [Zofran] Med 07/29/24 19:11 Active
4 mg IV Q6HPRN PRN
Oxycodone [Roxicodone] Med 07/29/24 19:11 Active
10 mg PO Q4HPRN PRN
Oxycodone [Roxicodone] Med 07/29/24 19:11 Active
5 mg PO Q4HPRN PRN
Pantoprazole [Protonix] Med 07/29/24 08:00 Active
40 mg PO DAILY
Polyethylene Glycol Powder [Miralax] Med 07/30/24 11:07 Active
17 grams PO DAILYPRN PRN
Pregabalin [Lyrica] Med 07/29/24 08:00 Active
150 mg PO BID
Sennosides [Senokot] Med 07/29/24 20:00 Active
17.2 mg PO BID
Vitals:
Temp Pulse Resp BP Pulse Ox
98.4 F 92 18 117/69 100
08/01/24 15:30 08/01/24 15:30 08/01/24 15:30 08/01/24 15:30 08/01/24 15:30
Height 4 ft 8 in
Actual Weight 56.427 kg
Body Mass Index (BMI) 27.9
Physical Exam:
General Appearance/Observation: Well-developed, well-nourished individual in no apparent distress.
Pain/Comfort Assessment: hip
Mood/Affect: Appropriate
Integumentary/Operative Site: Left hip with dressing
Pressure Ulcer Evaluation: absent over heels.
Other Type of Wound: absent
Eyes: Conjunctiva/Lids: normal Pupils: pupils equal round and reactive to light and Accommodation
Ears/Nose/Throat: oral mucosa moist, throat clear. Lips/Teeth/Gums: normal
Neck: No muscle spasm or tenderness
Cardiovascular: Heart: regular, no murmur
Pulses: dorsalis pedis 2+ bilaterally
Respiratory: Respiratory Effort/Chest Expansion: normal Auscultation: Clear to auscultation bilaterally
Gastrointestinal: abdomen not tender, no distension, normal abdominal bowel sounds
Genitourinary: No Lucio
Extremities: left thigh: None Cyanosis: None Trophic changes: None
Neurology Exam:
Orientation: Alert, Oriented to self, Time, Place
Memory: Intact for immediate medical concerns
Comprehension: Intact
Two step command: Intact
Naming: Intact
Cranial Nerves:
CNII: Pupillary light reflex: Intact Visual Field:NT
CN III, IV, : Extraocular muscles: Intact
CN V: Facial Sensation at Forehead: Intact, Maxilla: Intact, Mandible: Intact
CN VII: Facial movement: Symmetric
CN VIII: Hearing: Normal
CN IX/X: Speech & swallow: Normal, Position of Uvula: Midline
CN XI: Shoulder shrug: Symmetric
CN XII: Tongue protrusion: Midline
Sensory:
Light touch: Intact in right upper and bilateral lower extremities
Reflexes:
Biceps: 2+ right, deferred.
Brachioradialis: 2+ right, deferred left
Triceps: 2+ right, deferred left
Patellar: 2+ bilaterally
Achilles: 2+ bilaterally
Babinski: Down going bilaterally
Dani: Negative bilaterally
Cerebellar: Dysmetria/Ataxia: None
Musculoskeletal:
Motor: (Manual muscle scale 0-5)
Muscle SA EF WE EE FF FA HF KE DF EHL PF
Right 5 5 5 5 5 5 5 5 5 5 5
Left 5 NT NT NT NT NT 3 3 5 5 5
Tone: Normal in all extremities
Range of Motion: Passively within normal limits in all extremities
Lab Results:
Labs
WBC 10.0 10^3/uL (4.8-10.8) 07/29/24 07:17
RBC 4.66 10^6/uL (4.20-5.40) 07/29/24 07:17
Hgb 11.3 g/dL (12.0-16.0) L 07/30/24 06:17
Hct 33.7 % (37.0-47.0) L 07/30/24 06:17
MCV 79.4 fL (81.0-99.0) L 07/29/24 07:17
MCH 27.5 pg (27.0-31.0) 07/29/24 07:17
MCHC 34.6 g/dL (33.0-37.0) 07/29/24 07:17
RDW 15.9 % (11.5-14.5) H 07/29/24 07:17
Plt Count 360 10^3/uL (130-400) 07/29/24 07:17
MPV 8.8 fL (7.4-10.4) 07/29/24 07:17
Abs Immat Gran (auto) 0.0 10^3/uL (0-0.05) 07/29/24 07:17
Absolute Neuts (auto) 6.8 10^3/uL (1.4-6.5) H 07/29/24 07:17
Absolute Lymphs (auto) 2.4 10^3/uL (1.2-3.4) 07/29/24 07:17
Absolute Monos (auto) 0.7 10^3/uL (0.1-0.6) H 07/29/24 07:17
Absolute Eos (auto) 0.1 10^3/uL (0-0.7) 07/29/24 07:17
Absolute Basos (auto) 0.1 10^3/uL (0-0.2) 07/29/24 07:17
Immature Gran % 0.4 % (0-0.5) 07/29/24 07:17
Neutrophils % 67.7 % (42.2-75.2) 07/29/24 07:17
Lymphocytes % 23.5 % (20.5-51.1) 07/29/24 07:17
Monocytes % 6.7 % (1.7-9.3) 07/29/24 07:17
Eosinophils % 1.1 % (0-6) 07/29/24 07:17
Basophils % 0.6 % (0-2) 07/29/24 07:17
Nucleated RBC % 0 % 07/29/24 07:17
Sodium 137 mmol/L (135-145) 07/30/24 06:17
Potassium 3.9 mmol/L (3.5-5.1) 07/30/24 06:17
Chloride 108 mmol/L (98-107) H 07/30/24 06:17
Carbon Dioxide 22 mmol/L (22-30) 07/30/24 06:17
BUN 15 mg/dl (7-17) 07/30/24 06:17
Creatinine 0.7 mg/dL (0.6-1.0) 07/30/24 06:17
Estimated Creat Clear 53 ml/min 07/30/24 06:17
eGFR > 60.00 07/30/24 06:17
Glucose 144 mg/dl (70-99) H 07/30/24 06:17
Calcium 8.0 mg/dl (8.4-10.2) L 07/30/24 06:17
Total Bilirubin 0.7 mg/dl (0.2-1.3) 07/29/24 07:17
AST 39 U/L (14-36) H 07/29/24 07:17
ALT 22 U/L (0-35) 07/29/24 07:17
Alkaline Phosphatase 84 U/L (38-126) 07/29/24 07:17
Total Protein 6.4 g/dl (6.3-8.2) 07/29/24 07:17
Albumin 3.7 g/dl (3.5-5.0) 07/29/24 07:17
Blood Type B POS 07/28/24 20:55
Blood Type Confirm B POS 07/28/24 22:01
Antibody Screen Negative (Negative) 07/28/24 20:55
Diagnostic Results: as per HPI
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 Carty and scheduled for left wrist ORIF- 08/[address] Gallegos
Plan
PM&R PT/OT to increase independence with ADLs, improve balance, coordination, endurance, strength, mobility, community reintegration, decreased burden of care on others and family education.
Ambulatory dysfunction: Continue PT/OT
Left femur ORIF with gamma nailing�07/[address] Carty: Weightbearing as tolerated left lower extremity. Aspirin 325 mg once daily x 4 for DVT prophylaxis. Ice therapy and elevation for edema control. Left hip dressing x 7-10 days postop.
Jessie removal at 2 weeks postop.
Left wrist nondisplaced fracture: ORIF scheduled for 08/[address] Gallegos. No weightbearing on left upper extremity in sugar�tong splint
Hypothyroidism: levothyroxine
Anemia: Likely multifactorial and post-op. Hgb 11.3. Monitor
Psych/anxiety: Lorazepam 1 mg at bedtime. Monitor mood, adjust medications as needed.
Skin: monitor for pressure sores/rashes/lesions.
Pain: acetaminophen 650 mg every 6 hours as needed or oxycodone as needed. , Pregabalin 150 twice daily, hydromorphone 0.5 IV every 4 hours as needed
Bowel: Colace and Senna, PRN bisacodyl.
Bladder: Time void, PVRs, PRN straight cath.
GI Prophylaxis: Pantoprazole 40 mg daily
DVT Prophylaxis: Aspirin 325 daily
Pulmonary: Incentive spirometry
Safety: Continue to reinforce assistance with all transfers.
Code Status: Full code
Dispo (date/plan/equipment needs): Home with family care. Social history reviewed.
Functional and Medical Goals: Modified Independent with ADL�s, ambulation, transfers.
Discharge Destination: Acute inpatient rehabilitation once medically stable and cleared from ortho
Summary of recommendations: Will benefit from acute inpatient rehabilitation PT/OT to increase independence with ADLs, improve balance, coordination, endurance, strength, mobility, community reintegration, decreased burden of care on others and
family education.
Ambulatory dysfunction: Continue PT/OT
Left femur ORIF with gamma nailing�07/[address] Carty: Weightbearing as tolerated left lower extremity. Aspirin 325 mg once daily x 4 for DVT prophylaxis. Ice therapy and elevation for edema control. Left hip dressing x 7-10 days postop.
Jessie removal at 2 weeks postop.
Pain: acetaminophen 650 mg every 6 hours as needed or oxycodone as needed. , Pregabalin 150 twice daily, hydromorphone 0.5 IV every 4 hours as needed. Pain to be under control on p.o. medications for at least 24 hours prior to discharge.
Bowel: Colace and Senna, PRN bisacodyl.
Bladder: Time void, PVRs, PRN straight cath.
DVT Prophylaxis: Aspirin 325 daily x 4 weeks. Ortho- please comment, if okay to switched to Lovenox sc while inpatient rehab with resumption of ASA on discharge
Thank you for allowing me to care for your patient. Please contact me with any questions or concerns.

Documented by User: Aquiles Mcclure MD 08/01/24 17:17
Consultation - Medical
-
Referring Provider: Shon Alegre
Chief Complaint: Ambulatory dysfunction, status post left hip ORIF
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
brought to [facility] on 07/28 evening after a fall at home. States she was trying to put on shoes when she tipped over and landed on her side and felt the 'crack' in her left thigh. Brought to the ER and noted with acute traumatic
displaced left femoral diaphysis fracture above her left total knee replacement and left distal radial fracture.
On 07/29/2024 she underwent left femur reduction internal fixation with long gamma nail and distal interlocking screws x [address] Farooq Carty. Anticipated surgical correction for nondisplaced left distal radius fracture scheduled for 08/[address] Gallegos. Per Ortho�she is weightbearing as tolerated on the left lower extremity, nonweightbearing on the left upper extremity in sugar-tong splint. May consider platform walker for ambulatory assistance. DVT prophylaxis scheduled for aspirin
325 twice daily x 4 weeks. Ice therapy and elevation for edema control.
Patient seen at bedside by me today and sitting up in chair. States pain is controlled well in the left thigh and hip, no radiation distally and no numbness or paresthesias. Still pain in the radius and base of the left thumb, but no numbness or
tingling in the fingers or hand.
Past Medical History: osteoporosis on yearly infusion of Zoledronic acid and vitamin D 50,000 units every other week, anxiety, lumbar and cervical stenosis, GERD, hypothyroidism, chronic rhinitis)
Procedure History: Left femur long gamma nail with distal interlocking x 2,
Family History: non contributory
Social History:
Functional Level Premorbidly: Independent with all activities
Functional Level Currently: Eating�set up, grooming, toileting�min assist, lower extremity self-care�mod assist, toilet transfer�min assist, patient ambulated 25 feet and 10 feet x 2 with HW and min assist/contact-guard
Tobacco: Denies
Alcohol: Denies
Drug use: Denies
Lives with: alone
24-hour assistance available:
Number of floors: Multilevel
# steps to enter: 3
# steps to second floor:FF
Potential First floor set up: YES - has first floor master bedroom and bath.
Driving: yes
Occupation: works dye expert as RN
Allergies:
Allergy/AdvReac Type Severity Reaction Status Date / Time
No Known Allergies Allergy Unverified 07/28/24 19:23
Review of Systems:
Constitutional: (x) Normal _
Eye: (x) Normal _
Ear/Nose/Throat: (x) Normal _
Respiratory: (x) Normal _
Cardiovascular: (x) Normal _
Gastrointestinal: (x) abNormal _GERD
Genitourinary: (x) Normal _
Musculoskeletal: (x) abNormal _left femoral shaft fracture status post ORIF, left hip pain, left wrist fracture
Integumentary: (x) Normal _
Neurologic: (x) Normal _
Psychiatric: (x) abNormal _anxiety
Endocrine: (x) Normal _
Hematologic/Lymphatic: (x) Normal _
Allergic/Immunologic: (x) Normal _
Medications:
Active Current Visit Medication List
Category Date Time Status
Acetaminophen [Tylenol] Med 07/29/24 02:20 Active
650 mg PO Q4HPRN PRN
Aspirin Med 07/29/24 18:00 Active
325 mg PO DAILY
CeFAZolin 2 GRAM [Ancef] Med 08/02/24 07:00 Active
2 grams in 10 ml IV PRE PROCEDURE
Cetirizine HCl [Zyrtec] Med 07/29/24 08:00 Active
10 mg PO DAILY
Docusate Sodium [Colace] Med 07/29/24 20:00 Active
100 mg PO BID
Erythromycin (Ilotycin) [Erythromycin 0.5% Ophthalmic Med 07/29/24 08:00 Active
Ointment]
1 applic RIGHT EYE BID
Flush (0.9% Sodium Chloride) [Flush (Nss)] Med 07/28/24 23:00 Active
See Dose Instructions IV PER PROTOCOL
HYDROmorphone [Dilaudid] Med 07/29/24 02:20 Active
0.5 mg IV Q4HPRN PRN
Levothyroxine [Synthroid] Med 07/29/24 06:00 Active
75 mcg PO DAILY @ 0600
Lorazepam [Ativan] Med 07/29/24 22:00 Active
1 mg PO HS
Mag Hydrox/Al Hydrox/Simeth [Maalox] Med 07/29/24 19:11 Active
30 ml PO Q4HPRN PRN
Naproxen [Naprosyn] Med 07/29/24 08:00 Active
500 mg PO DAILY
Ondansetron Injectable [Zofran] Med 07/29/24 09:02 Active
4 mg IV Q6HPRN PRN
Ondansetron Injectable [Zofran] Med 07/29/24 19:11 Active
4 mg IV Q6HPRN PRN
Oxycodone [Roxicodone] Med 07/29/24 19:11 Active
10 mg PO Q4HPRN PRN
Oxycodone [Roxicodone] Med 07/29/24 19:11 Active
5 mg PO Q4HPRN PRN
Pantoprazole [Protonix] Med 07/29/24 08:00 Active
40 mg PO DAILY
Polyethylene Glycol Powder [Miralax] Med 07/30/24 11:07 Active
17 grams PO DAILYPRN PRN
Pregabalin [Lyrica] Med 07/29/24 08:00 Active
150 mg PO BID
Sennosides [Senokot] Med 07/29/24 20:00 Active
17.2 mg PO BID
Vitals:
Temp Pulse Resp BP Pulse Ox
98.4 F 92 18 117/69 100
08/01/24 15:30 08/01/24 15:30 08/01/24 15:30 08/01/24 15:30 08/01/24 15:30
Height 4 ft 8 in
Actual Weight 56.427 kg
Body Mass Index (BMI) 27.9
Physical Exam:
General Appearance/Observation: Well-developed, well-nourished individual in no apparent distress.
Pain/Comfort Assessment: Left wrist
Mood/Affect: Appropriate
Integumentary/Operative Site: Left hip with dressing but clean. Left wrist in splint.
Pressure Ulcer Evaluation: absent over heels.
Other Type of Wound: absent
Eyes: Conjunctiva/Lids: normal Pupils: pupils equal round and reactive to light and Accommodation
Ears/Nose/Throat: oral mucosa moist, throat clear. Lips/Teeth/Gums: normal
Neck: No muscle spasm or tenderness
Cardiovascular: Heart: regular, no murmur
Pulses: dorsalis pedis 2+ bilaterally
Respiratory: Respiratory Effort/Chest Expansion: normal Auscultation: Clear to auscultation bilaterally
Gastrointestinal: abdomen not tender, no distension, normal abdominal bowel sounds
Genitourinary: No Lucio
Extremities: left thigh:minimal swelling, no distal swelling no calf tenderness. Cyanosis: None Trophic changes: None
Neurology Exam:
Orientation: Alert, Oriented to self, Time, Place
Memory: Intact for immediate medical concerns
Comprehension: Intact
Two step command: Intact
Naming: Intact
Cranial Nerves: - Intact and symmetric
Sensory:
Light touch: Intact in bilateral fingers and bilateral lower extremities.
Reflexes:
Achilles: 1+ bilaterally
Babinski: Down going bilaterally
Dani: Negative bilaterally
Cerebellar: Dysmetria/Ataxia: None
Musculoskeletal:
Motor: (Manual muscle scale 0-5)
Muscle SA EF WE EE FF FA HF KE DF EHL PF
Right 5 5 5 5 5 5 5 5 5 5 5
Left 5 NT NT NT NT NT 3 3 5 5 5
Able to lift left leg slightly off the footrest.
Tone: Normal in all extremities
Range of Motion: Passively within normal limits in all extremities
Lab Results:
Labs
WBC 10.0 10^3/uL (4.8-10.8) 07/29/24 07:17
RBC 4.66 10^6/uL (4.20-5.40) 07/29/24 07:17
Hgb 11.3 g/dL (12.0-16.0) L 07/30/24 06:17
Hct 33.7 % (37.0-47.0) L 07/30/24 06:17
MCV 79.4 fL (81.0-99.0) L 07/29/24 07:17
MCH 27.5 pg (27.0-31.0) 07/29/24 07:17
MCHC 34.6 g/dL (33.0-37.0) 07/29/24 07:17
RDW 15.9 % (11.5-14.5) H 07/29/24 07:17
Plt Count 360 10^3/uL (130-400) 07/29/24 07:17
MPV 8.8 fL (7.4-10.4) 07/29/24 07:17
Abs Immat Gran (auto) 0.0 10^3/uL (0-0.05) 07/29/24 07:17
Absolute Neuts (auto) 6.8 10^3/uL (1.4-6.5) H 07/29/24 07:17
Absolute Lymphs (auto) 2.4 10^3/uL (1.2-3.4) 07/29/24 07:17
Absolute Monos (auto) 0.7 10^3/uL (0.1-0.6) H 07/29/24 07:17
Absolute Eos (auto) 0.1 10^3/uL (0-0.7) 07/29/24 07:17
Absolute Basos (auto) 0.1 10^3/uL (0-0.2) 07/29/24 07:17
Immature Gran % 0.4 % (0-0.5) 07/29/24 07:17
Neutrophils % 67.7 % (42.2-75.2) 07/29/24 07:17
Lymphocytes % 23.5 % (20.5-51.1) 07/29/24 07:17
Monocytes % 6.7 % (1.7-9.3) 07/29/24 07:17
Eosinophils % 1.1 % (0-6) 07/29/24 07:17
Basophils % 0.6 % (0-2) 07/29/24 07:17
Nucleated RBC % 0 % 07/29/24 07:17
Sodium 137 mmol/L (135-145) 07/30/24 06:17
Potassium 3.9 mmol/L (3.5-5.1) 07/30/24 06:17
Chloride 108 mmol/L (98-107) H 07/30/24 06:17
Carbon Dioxide 22 mmol/L (22-30) 07/30/24 06:17
BUN 15 mg/dl (7-17) 07/30/24 06:17
Creatinine 0.7 mg/dL (0.6-1.0) 07/30/24 06:17
Estimated Creat Clear 53 ml/min 07/30/24 06:17
eGFR > 60.00 07/30/24 06:17
Glucose 144 mg/dl (70-99) H 07/30/24 06:17
Calcium 8.0 mg/dl (8.4-10.2) L 07/30/24 06:17
Total Bilirubin 0.7 mg/dl (0.2-1.3) 07/29/24 07:17
AST 39 U/L (14-36) H 07/29/24 07:17
ALT 22 U/L (0-35) 07/29/24 07:17
Alkaline Phosphatase 84 U/L (38-126) 07/29/24 07:17
Total Protein 6.4 g/dl (6.3-8.2) 07/29/24 07:17
Albumin 3.7 g/dl (3.5-5.0) 07/29/24 07:17
Blood Type B POS 07/28/24 20:55
Blood Type Confirm B POS 07/28/24 22:01
Antibody Screen Negative (Negative) 07/28/24 20:55
Diagnostic Results: as per HPI
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 Carty and scheduled for left wrist ORIF- 08/[address] Gallegos
Plan
PM&R PT/OT to increase independence with ADLs, improve balance, coordination, endurance, strength, mobility, community reintegration, decreased burden of care on others and family education.
Ambulatory dysfunction: Continue PT/OT - WBAT in LLE
Left femur ORIF with long gamma nailing�07/[address] Carty: Weightbearing as tolerated left lower extremity. Aspirin 325 mg once daily x 4 for DVT prophylaxis. Ice therapy and elevation for edema control. Left hip dressing x 7-10 days postop.
Jessie removal at 2 weeks postop.
Left wrist nondisplaced fracture: ORIF scheduled for 08/[address] Gallegos. No weightbearing on left upper extremity in sugar�tong splint
-Please advise on weight bearing status in the LUE postoperatively - And if allowed to at least use platform walker for rehab for LLE>
Hypothyroidism: levothyroxine
Anemia: Likely multifactorial and post-op. Hgb 11.3. Monitor
Psych/anxiety: Lorazepam 1 mg at bedtime. Monitor mood, adjust medications as needed.
Skin: monitor for pressure sores/rashes/lesions.
Pain: acetaminophen 650 mg every 6 hours as needed or oxycodone as needed. , Pregabalin 150 twice daily, hydromorphone 0.5 IV every 4 hours as needed
Bowel: Colace and Senna, PRN bisacodyl.
Bladder: Time void, PVRs, PRN straight cath.
GI Prophylaxis: Pantoprazole 40 mg daily
DVT Prophylaxis: Aspirin 325 daily
Pulmonary: Incentive spirometry
Safety: Continue to reinforce assistance with all transfers.
Code Status: Full code
Dispo (date/plan/equipment needs): Home with family care. Social history reviewed.
Functional and Medical Goals: Modified Independent with ADL�s, ambulation, transfers.
Discharge Destination: Acute inpatient rehabilitation once medically stable and cleared from ortho
Summary of recommendations: Will benefit from acute inpatient rehabilitation PT/OT to increase independence with ADLs, improve balance, coordination, endurance, strength, mobility, community reintegration, decreased burden of care on others and
family education.
- Please advise on any change to weightbearing status in the LUE post-operatively. And if able to at least use a platform walker for LLE rehabilitation and gait safety.
Ambulatory dysfunction: Continue PT/OT
Left femur ORIF with gamma nailing�07/[address] Carty: Weightbearing as tolerated left lower extremity. Aspirin 325 mg once daily x 4 for DVT prophylaxis. Ice therapy and elevation for edema control. Left hip dressing x 7-10 days postop.
Jessie removal at 2 weeks postop.
Pain: acetaminophen 650 mg every 6 hours as needed or oxycodone as needed. , Pregabalin 150 twice daily, hydromorphone 0.5 IV every 4 hours as needed. Pain to be under control on p.o. medications for at least 24 hours prior to discharge.
Bowel: Colace and Senna, PRN bisacodyl.
Bladder: Time void, PVRs, PRN straight cath.
DVT Prophylaxis: Aspirin 325 daily x 4 weeks. Ortho- please comment, if okay to switched to Lovenox sc while inpatient rehab with resumption of ASA on discharge
Thank you for allowing me to care for your patient. Please contact me with any questions or concerns.
[2024-08-01] MEDS: ERYTHROMYCIN 0.5% OPHTHALMIC OINTMENT 1 APPLIC RIGHT EYE (20:05)
[2024-08-01] MEDS: ATIVAN 1 MG PO (21:25)
[2024-08-01 23:17] VITALS: BP 124/73
[2024-08-02] VITALS (12 sets, daily range): BP systolic 102–134; BP diastolic 54–71
[2024-08-02] MEDS: SYNTHROID 75 MCG PO (05:38)
[2024-08-02] MEDS: LYRICA 150 MG PO ×2 (08:25→20:00)
[2024-08-02] MEDS: ASPIRIN 325 MG PO (08:25)
[2024-08-02] MEDS: PROTONIX 40 MG PO (08:26)
[2024-08-02] MEDS: COLACE 100 MG PO ×2 (08:26→20:00)
[2024-08-02] MEDS: ZYRTEC 10 MG PO (08:26)
[2024-08-02] MEDS: SENOKOT PO (08:27)
[2024-08-02] MEDS: NAPROSYN PO (08:28)
[2024-08-02] MEDS: ERYTHROMYCIN 0.5% OPHTHALMIC OINTMENT RIGHT EYE (08:28)
--- NOTE | 2024-08-02 09:24 | CM ---
CM reviewed PM&R consult notes on the chart;
Plan: Discharge to [facility] when stable for discharge
--- NOTE | 2024-08-02 10:40 | CM ---
Addendum entered by Angela Mahoney 08/02/24 14:12:
Per Attending, patient underwent ORIF of left radius today; and reported that she should be stable for discharge to Acute Rehab within 24-48 hours
Sandeep notified via [facility] and phone # [phone]
Original Note:
Met with patient at bedside; scheduled for procedure today
Plan: discharge to Acute Rehab when medically stable; pending bed availability
--- NOTE | 2024-08-02 13:48 | W.PN.HOSP.TC ---
Today's Communication/Plan
-
Assessment / Plan
Assessment / Plan
Gen-AAOx3, NAD
HEENT-NC, AT, anicteric, clear oral mm
Neck-supple
CV-reg, rate controlled around 80
Lungs-no accessory muscle use, no increased work of breathing, no audible wheezing
Abd-nondistended, no active vomiting
Ext-no edema
Musculoskeletal-left hip surgical dressings with mild strikethrough, left upper extremity forearm sugar-tong splint in place
Skin-warm and dry
Neuro-grossly non-focal
Psych-calm, cooperative
Acute traumatic displaced left femoral diaphysis fracture
-due to trauma from fall, underlying osteoporosis.
-Stable postop left femur long gamma nail with distal interlocking x 2, 07/29.
-Aspirin for DVT prophylaxis per orthopedics.
-Continue analgesics, ambulating with platform walker, anticipate inpatient acute rehab once medically stable and cleared from Ortho
Acute traumatic nondisplaced left distal radius fracture
-due to fall, osteoporosis.
-Anticipate surgical correction today 08/02 as per orthopedics
-nonweightbearing left upper extremity for now
Osteoporosis
-she gets yearly infusions of zoledronic acid. On vitamin D 50,000 units every other week.
Hypothyroidism
-levothyroxine.
Chronic rhinitis
Lumbar/cervical spinal stenosis
GERD
Anxiety disorder
Full code
Dispo -anticipate acute rehab after repair of radial fracture.
Anticipated Discharge: 24 - 48 hours
Subjective/Interval History
-
Date of Service: August 02, 2024
Patient was seen and examined at bedside this morning. She is trying to keep her spirits up while she is awaiting OR again today for fixation of left radius fracture. 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
Objective Data
-
Vital Signs:
Vital Signs
Temp Pulse Resp BP Pulse Ox
98.4 F 81 17 118/63 98
08/02/24 07:15 08/02/24 07:15 08/02/24 07:15 08/02/24 07:15 08/02/24 07:15
I&O
08/01/24 08/02/24 08/03/24
06:59 06:59 06:59
Intake Total 480 / 480 640 / 640
Balance 480 / 480 640 / 640
Review of Systems
-
History Source: Patient
All other systems: Reviewed and negative
Physical Exam
-
General: No Apparent Distress
[2024-08-02] MEDS: DILAUDID 0.5 MG IV (17:30)
[2024-08-02] MEDS: DILAUDID 0.25 MG IV ×2 (17:47→18:44)
[2024-08-02] MEDS: NSS 1000 IV (18:50)
[2024-08-02] MEDS: ANCEF 5 IV ×2 (20:00→23:21)
[2024-08-02] MEDS: ATIVAN 1 MG PO (20:00)
[2024-08-02] MEDS: SENOKOT 17.2 MG PO (20:00)
[2024-08-02] MEDS: ERYTHROMYCIN 0.5% OPHTHALMIC OINTMENT 1 APPLIC RIGHT EYE (20:01)
[2024-08-03 03:13] VITALS: BP 100/62
[2024-08-03] MEDS: SYNTHROID 75 MCG PO (05:08)
[2024-08-03 07:31] LABS: Hematocrit 31.7 % (37.0-47.0); Hemoglobin 10.8 g/dL (12.0-16.0)
--- NOTE | 2024-08-03 07:40 | W.PN.UPDATE ---
Update Note
Progress Note Update
Ms. Riggs is POD5 left cephalomedullary nail under the direction of Dr. Carty and POD1 ORIF left distal radius fracture under the direction of Dr. Gallegos. She is resting comfortably in bed this morning. Her primary concern this morning is
swelling about her hip and hand. She endorses a small amount of volar wrist pain, but otherwise reports she is doing well.
Directed exam of the left hip reveals surgical dressings with slight strikethrough of blood, otherwise dry and intact. Expected post-operative edema throughout the left lower extremity. Thigh soft and compressible. Calf soft and nontender. Patient
able to wiggle toes, plantar and dorsiflex ankle. Neurovascularly intact distally.
Directed exam of the left upper extremity reveals surgical splint intact. Expected post-operative edema throughout the left hand. Patient able to wiggle fingers. Sensation intact to light touch. Capillary refill <2 seconds.
Hgb 11.3 yesterday, pending this AM.
69 yo F POD 5 left CMN under the direction of Dr. Carty
--WBAT to LLE with platform walker. We appreciate the assistance of PT/OT.
--ASA 325 mg daily x4 weeks for DVT ppx unless otherwise directed by primary.
--Pain control prn. Ice and elevation for edema control.
--Hgb 11.3 yesterday, pending this AM. Continue to monitor.
--Case management consult for dc planning.
--Reinforce or change dressing as needed. Dressing to remain in place until 2 weeks post-op. Staple removal at 2 weeks post-op.
POD1 ORIF left distal radius fracture under the direction of Dr. Gallegos
--NWB to LUE (other than platform walker).
--Pain control prn, ice and elevation for edema control. Encouraged digital ROM.
--Splint to remain in place until 2 weeks post-op.
--Patient would like true AP of wrist to send to her brother who is an orthopedic surgeon. Images from mini c-arm not available in [email or web address]. Discussed that we will obtain updated x-rays at her first post-op visit.
--Follow up 2 weeks post-op for suture removal and repeat x-rays.
--Orthopedics will continue to follow along.
[2024-08-03 08:00] VITALS: BP 137/80
[2024-08-03 08:14] LABS: Blood Urea Nitrogen 16 mg/dl (7-17); Calcium 8.6 mg/dl (8.4-10.2); Carbon Dioxide 23 mmol/L (22-30); Chloride 110 mmol/L (98-107); Estimated Creatinine Clearance 62 ml/min; Glucose 112 mg/dl (70-99); Potassium 4.2 mmol/L (3.5-5.1); Sodium 141 mmol/L (135-145); eGFR > 60.00
[2024-08-03] MEDS: NSS IV (08:38)
[2024-08-03] MEDS: COLACE 100 MG PO (08:39)
[2024-08-03] MEDS: ASPIRIN 325 MG PO (08:40)
[2024-08-03] MEDS: LYRICA 150 MG PO ×2 (08:40→20:14)
[2024-08-03] MEDS: ZYRTEC 10 MG PO (08:40)
[2024-08-03] MEDS: PROTONIX 40 MG PO (08:40)
[2024-08-03] MEDS: SENOKOT 17.2 MG PO (08:41)
[2024-08-03] MEDS: NAPROSYN PO (08:43)
[2024-08-03] MEDS: ERYTHROMYCIN 0.5% OPHTHALMIC OINTMENT RIGHT EYE (08:43)
[2024-08-03 10:32] VITALS: BP 129/83; PULSE 90; O2SAT 99
[2024-08-03 10:36] VITALS: BP 129/83; PULSE 92; O2SAT 98
[2024-08-03] MEDS: MIRALAX 17 GRAMS PO (11:13)
[2024-08-03] MEDS: MIRALAX PO (11:13)
[2024-08-03 12:41] VITALS: BP 139/83
--- NOTE | 2024-08-03 13:57 | W.PN.HOSP.TC ---
Addendum entered and electronically signed by Shon Herrmann DO 08/03/24 14:26:
Anemia noted in assessment plan is suspected due to acute intraoperative blood loss
Original Note:
Today's Communication/Plan
-
Assessment / Plan
Assessment / Plan
Gen-AAOx3, NAD
HEENT-NC, AT, anicteric, clear oral mm
Neck-supple
CV-reg, rate controlled around 80
Lungs-no accessory muscle use, no increased work of breathing, no audible wheezing
Abd-nondistended, no active vomiting
Ext-no edema
Musculoskeletal-left hip surgical dressings with mild strikethrough, left upper extremity forearm with postsurgical dressing and sling
Skin-warm and dry
Neuro-grossly non-focal
Psych-calm, cooperative
Acute traumatic displaced left femoral diaphysis fracture
- due to trauma from fall, underlying osteoporosis.
- Stable postop left femur long gamma nail with distal interlocking x 2, 07/29.
- Aspirin for DVT prophylaxis per orthopedics.
- Weightbearing as tolerated with platform walker
- Continue analgesics, ambulating with platform walker, anticipate inpatient acute rehab once bed available, medically stable
Acute traumatic nondisplaced left distal radius fracture
- due to fall, osteoporosis.
- Status post ORIF 08/02
- nonweightbearing left upper extremity for now except for platform walker
Microcytic anemia
- Possibly due to intraoperative blood loss from 2 recent surgical procedures
- No evidence of active bleeding
- Will check iron panel
- Monitor
Osteoporosis
- she gets yearly infusions of zoledronic acid. On vitamin D 50,000 units every other week.
Hypothyroidism
- levothyroxine.
Chronic rhinitis
Lumbar/cervical spinal stenosis
GERD
Anxiety disorder
Full code
Dispo -anticipate acute rehab
Anticipated Discharge: Within 24 hours
Subjective/Interval History
-
Date of Service: August 03, 2024
Patient was seen and examined at bedside this morning. She is status post ORIF left radial fracture yesterday. She tolerated procedure well. Anxiously awaiting rehab placement.
Objective Data
-
Labs:
Laboratory Results
08/03/24
06:57
Hgb 10.8 L
Hct 31.7 L
Sodium 141
Potassium 4.2
Chloride 110 H
Carbon Dioxide 23
BUN 16
Creatinine 0.6
Glucose 112 H
Calcium 8.6
Vital Signs:
Vital Signs
Temp Pulse Resp BP Pulse Ox
98.9 F 84 16 139/83 99
08/03/24 12:41 08/03/24 12:41 08/03/24 12:41 08/03/24 12:41 08/03/24 12:41
I&O
08/02/24 08/03/24 08/04/24
06:59 06:59 06:59
Intake Total 640 / 640 1260 / 1260
Balance 640 / 640 1260 / 1260
Review of Systems
-
History Source: Patient
All other systems: Reviewed and negative
Musculoskeletal: Reports Joint Pain (Mild left wrist and left thigh pain)
Physical Exam
-
General: No Apparent Distress
--- NOTE | 2024-08-03 14:08 | PN.CDI ---
CDI
- -
CDI:
Physician Documentation Request
Admit Date: 07/29/24 01:43
Dear Doctor Alize,
Please review the following and provide your response in the progress notes.
Clinical Indicators:
Pt admitted with Acute traumatic displaced left femoral diaphysis fracture /Acute traumatic nondisplaced left distal radius fracture due to fall, osteoporosis.
Progress note 08/03,' Microcytic anemia Possibly due to intraoperative blood loss from 2 recent surgical procedures...'
07/28/24 08/03/24
20:55 06:57
Hgb 12.8 10.8 L
Hct 37.1 31.7 L
Clarify which of the following accurately represents the acuity of the ( Intraoperative blood loss )
Acute
Acute on Chronic
Other ( please specify)
Use of terms such as suspected, likely, concern for, or probable (associated with a specific diagnosis that is being evaluated, monitored, or treated as if it exists) are acceptable and can be coded in the inpatient setting, when documented at the
time of discharge.
Thank you,
Thea Vang RN
CDI Specialist
[place] [facility]
Please use your independent medical judgment in providing your response.
--- NOTE | 2024-08-03 14:13 | PN.CDI ---
CDI
- -
CDI:
Physician Documentation Request
Admit Date: 07/29/24 01:43
Physician Documentation Request
Admit Date: 07/29/24 01:43
Dear Doctor Alize,
Please review the following and provide your response in the progress notes.
Clinical Indicators:
Pt admitted with Acute traumatic displaced left femoral diaphysis fracture /Acute traumatic nondisplaced left distal radius fracture due to fall, osteoporosis.
Progress note 08/03,' Microcytic anemia Possibly due to intraoperative blood loss from 2 recent surgical procedures...'
07/28/24 08/03/24
20:55 06:57
Hgb 12.8 10.8 L
Hct 37.1 31.7 L
Clarify which of the following accurately represents the acuity of the ( Intraoperative blood loss anemia )
Acute
Acute on Chronic
Other ( please specify)
Use of terms such as suspected, likely, concern for, or probable (associated with a specific diagnosis that is being evaluated, monitored, or treated as if it exists) are acceptable and can be coded in the inpatient setting, when documented at the
time of discharge.
Thank you,
Thea Vang RN
CDI Specialist
[place] [facility]
Please use your independent medical judgment in providing your response.
--- NOTE | 2024-08-03 14:43 | CM ---
CM reviewed chart, reviewed with [facility] liaison, last BM 07/31. CM reviewed with nursing regarding need for BM. Per [facility] is able to accept patient today. Patient seen bedside, tearful/anxious regarding discharge to [facility], requesting to
discharge tomorrow, update to Hospitalist, update to [facility] liaison. IMM verbally reviewed, provided with copy, placed in chart. Patient requesting ambulance transport, concerned to transport via [facility]. Clinicals faxed to Sande[facility]clean-
[phone]. CM will continue to follow for all discharge planning needs.
Plan; discharge to [facility] [place], will require ambulance transport
[2024-08-03 14:58] LABS: Iron 41 ug/dl (37-170)
[2024-08-03 15:07] LABS: Percent Saturation 15 % (20-50); Total Iron Binding Capacity 268 ug/dl (265-497)
--- NOTE | 2024-08-03 15:30 | PTCARENOTE ---
Patient complaining of increased swelling, throbbing, level pain now 10 in left hand/arm, some change in color of left thumb; some relief when I unwrapped katherin wrap; patient requesting a doctor to assess, Dr. Gallegos & Dr. Herrmann notified.
[2024-08-03] MEDS: TYLENOL 650 MG PO (16:35)
[2024-08-03 17:00] VITALS: BP 143/85
[2024-08-03] MEDS: ROXICODONE 10 MG PO (20:14)
[2024-08-03] MEDS: SENOKOT PO (20:14)
[2024-08-03] MEDS: ERYTHROMYCIN 0.5% OPHTHALMIC OINTMENT 1 APPLIC RIGHT EYE (20:14)
[2024-08-03] MEDS: COLACE PO (20:15)
[2024-08-03] MEDS: ATIVAN 1 MG PO (21:40)
[2024-08-04 03:27] VITALS: BP 105/59
--- NOTE | 2024-08-04 05:00 | DOWNTIME ---
There was a [employer] Downtime on 08/04/2024 from 0200 to 08/05/2023 at 0318 . Downtime documentation of patient's care, including medication administrations, has been reconciled in the electronic record per guidelines. Refer to the
patient's paper chart under the miscellaneous tab to see printed paper medication records and downtime forms.
--- NOTE | 2024-08-04 05:03 | PTCARENOTE ---
Pt reports she does not want to use the platform waker r/t increased pain to her cervical spine. Pt prefer to use ayesha
[2024-08-04] MEDS: SYNTHROID 75 MCG PO (06:12)
[2024-08-04 07:18] VITALS: BP 115/75
--- NOTE | 2024-08-04 08:03 | W.PN.ORTHO ---
Today's Communication / Plan
-
PT/OT
Aspirin for DVT prophylactics
Nonweightbearing left upper extremity
Weightbearing as tolerated left lower extremity
Return to office 2 weeks postop from the left wrist surgery
Orthopedics to sign off for now
Assessment
.
Distal Motor Intact: Yes
Dressing:
Clean, dry and intact.
Plan
.
Surgery / Date: 07/29/2024 Left Femur Reduction Internal Fixation
DVT Prophylaxis: Aspirin
Activity:
Out of bed.
PT/OT
Discharge Plan: SNF
Subjective
.
.:
Patient resting comfortably.
Vital Signs and Labs
.
Vital Signs and Labs:
Lab Results
08/03/24 06:57
08/03/24 06:57
Temp Pulse Resp BP Pulse Ox
98.2 F 80 16 115/75 100
08/04/24 07:18 08/04/24 07:18 08/04/24 07:18 08/04/24 07:18 08/04/24 07:18
Physical Exam
-
Left wrist splint in place. Minimal edema in the fingers. Distal neurovascular was intact and minimal pain noted.
[2024-08-04] MEDS: NAPROSYN 500 MG PO (08:31)
[2024-08-04] MEDS: ERYTHROMYCIN 0.5% OPHTHALMIC OINTMENT 1 APPLIC RIGHT EYE (08:32)
[2024-08-04] MEDS: COLACE PO (08:32)
[2024-08-04] MEDS: ZYRTEC 10 MG PO (08:32)
[2024-08-04] MEDS: PROTONIX 40 MG PO (08:32)
[2024-08-04] MEDS: LYRICA 150 MG PO (08:32)
[2024-08-04] MEDS: ASPIRIN 325 MG PO (08:32)
[2024-08-04] MEDS: SENOKOT PO (08:32)
--- NOTE | 2024-08-04 10:00 | W.DCSUMMARY ---
Discharge Summary
Discharge Data
Date of Admission: 07/29/24
Date of Discharge: 08/04/24
-
Pending Results: No
Hospital Course
Ms. Riggs is a 69-year-old female with a medical history of hypothyroidism, cervical and lumbar spinal stenosis, anxiety, GERD, and chronic rhinitis who presented after mechanical fall. She did not hit her head or lose consciousness. She fell onto
her left side and had significant left thigh and left wrist pain. She was found to have a left femoral diaphyseal fracture and a nondisplaced extra-articular impaction fracture of the left distal radius. She underwent ORIF for left femur on 07/29
with long gamma nail. She later underwent ORIF for left radial fracture on 08/02. She tolerated both procedures well. She had some mild anemia postoperatively with no evidence of active bleeding. Her serum iron levels were on the low side of
normal and her percent saturation was just below normal limits. She will be given daily iron supplementation. She was recommended for acute rehab after this hospitalization. Arrangements have been made for discharge to [facility] [place].
She remained hemodynamically stable throughout her hospitalization. She was medically stable at time of discharge. She will need ongoing follow-up with orthopedics and with her primary care physician.
Gen-AAOx3, NAD
HEENT-NC, AT, anicteric, clear oral mm
Neck-supple
CV-reg, rate controlled around 80
Lungs-no accessory muscle use, no increased work of breathing, no audible wheezing
Abd-nondistended, no active vomiting
Ext-no edema
Musculoskeletal-left hip surgical dressings with mild strikethrough, left upper extremity forearm with postsurgical dressing
Skin-warm and dry
Neuro-grossly non-focal
Psych-calm, cooperative
Discharge Plan
-
Patient Disposition: Acute Rehab Facility
Discharge Diagnosis/Procedures: Left femur and left radius fracture, status post ORIF
Condition: Fair
Diet: No restrictions
Activity: With assistance and As tolerated
Additional Activity: No weightbearing to left upper extremity other than platform walker
Activity Restrictions/Additional Instructions:
Ms. Riggs is a 69-year-old female with a medical history of hypothyroidism, cervical and lumbar spinal stenosis, anxiety, GERD, and chronic rhinitis who presented after mechanical fall. She did not hit her head or lose consciousness. She fell onto
her left side and had significant left thigh and left wrist pain. She was found to have a left femoral diaphyseal fracture and a nondisplaced extra-articular impaction fracture of the left distal radius. She underwent ORIF for left femur on 07/29
with long gamma nail. She later underwent ORIF for left radial fracture on 08/02. She tolerated both procedures well. She had some mild anemia postoperatively with no evidence of active bleeding. Her serum iron levels were on the low side of
normal and her percent saturation was just below normal limits. She will be given daily iron supplementation. She was recommended for acute rehab after this hospitalization. Arrangements have been made for discharge to [facility] [place].
She remained hemodynamically stable throughout her hospitalization. She was medically stable at time of discharge. She will need ongoing follow-up with orthopedics and with her primary care physician.
Referrals:
Aden Hi MD [Family Provider] -
Prescriptions:
New
sennosides [Parris-aryan] 8.6 mg Tablet
17.2 mg PO BID Qty: 10 0RF
acetaminophen 325 mg Tablet
650 mg PO Q4HPRN PRN (Reason: mild pain/PRAJAPATI/temp> 100.4F) Qty: 10 0RF
aspirin 325 mg Tablet
325 mg PO DAILY 30 Days Qty: 30 0RF
docusate sodium 100 mg Capsule
100 mg PO BID 30 Days Qty: 60 0RF
oxycodone 5 mg Tablet
5 mg PO Q4HPRN PRN (Reason: mild pain) Qty: 10 0RF
Continued
cetirizine [Zyrtec] 10 mg Tablet
10 mg PO DAILY
omeprazole 40 mg Capsule,Delayed Release(Dr/Ec)
40 mg PO DAILY
levothyroxine 75 mcg Tablet
75 mcg PO DAILY
erythromycin 5 mg/gram (0.5 %) Ointment
1 applic RIGHT EYE BID
lorazepam 1 mg Tablet
1 mg PO HS
fluticasone propionate 50 mcg/actuation [place],Suspension
1 spray INTRANASAL BID
pregabalin 150 mg Capsule
150 mg PO BID
Advil PM 200-38 mg Tablet
0.5 tab PO HSPRN PRN (Reason: mild pain)
Held
naproxen 500 mg Tablet
500 mg PO DAILY
Hold Instructions: Hold until no longer taking full-strength aspirin postoperatively, can resume as needed after that
Discharge Orders:
Discharge Patient (As Directed); Ordered 08/04/24
Ordered By: Shon Herrmann
Discharge Date and Time
Print Language: LIBERIAN
[2024-08-04 10:50] VITALS: BP 120/75; PULSE 91
--- NOTE | 2024-08-04 11:24 | CM ---
Addendum entered by Oneyda Thapa RN 08/04/24 14:08:
Correction:
Call report to: [phone]. Original # was for the person covering [facility] for the day.
Addendum entered by Oneyda Thapa RN 08/04/24 12:04:
Call report to: [phone]
Fax report to: [phone]
Transport form on chart. Patient agreeable to w/c van. Patient provided with phone # for Acute Amb transport.
Original Note:
Reviewed the chart notes and spoke with the patient at the bedside. IMM reviewed. Discussed transportation options of wheelchair van (cost $175) or family/friend to transport. She is considering. CM continues to be available to patient/family
and is monitoring medical plan for needs at discharge.
Plan: Discharge to [facility] today. No precert required.
--- NOTE | 2024-08-04 13:20 | PTCARENOTE ---
RN attempted to call report to [facility], unable to take report at this time, awaiting call back. Care remains ongoing.
[2024-08-04 15:00] VITALS: BP 124/64
== END 2024-08-04 17:40 | DRG 481 ==
LOC: 2 SOUTH 01:43
PROVIDERS: Specialist; Student in an Organized Health Care Education/Training Program; ADMITTING PHYSICIAN Hospitalist; ATTENDING PHYSICIAN Internal Medicine; EMERGENCY PHYSICIAN Student in an Organized Health Care Education/Training Program; FAMILY PHYSICIAN Family Medicine; OTHER PHYSICIAN Orthopaedic Surgery Hand Surgery; OTHER PHYSICIAN Physical Medicine & Rehabilitation
PROC: 0QS936Z Reposition Left Femoral Shaft with Intramedullary Internal Fixation Device, Percutaneous Approach (ICD-10-PCS; 2024-07-29)
PROC: 0PSJ04Z Reposition Left Radius with Internal Fixation Device, Open Approach (ICD-10-PCS; 2024-08-02)
DX: M80.052A Age-related osteoporosis with current pathological fracture, left femur, initial encounter for fracture (principal); D62 Acute posthemorrhagic anemia; M80.032A Age-related osteoporosis with current pathological fracture, left forearm, initial encounter for fracture; E03.9 Hypothyroidism, unspecified; K21.9 Gastro-esophageal reflux disease without esophagitis; G57.10 Meralgia paresthetica, unspecified lower limb; J31.0 Chronic rhinitis; F41.9 Anxiety disorder, unspecified; W18.39XA Other fall on same level, initial encounter; M48.02 Spinal stenosis, cervical region; M48.061 Spinal stenosis, lumbar region without neurogenic claudication; Z96.653 Presence of artificial knee joint, bilateral; Z79.890 Hormone replacement therapy; Z79.899 Other long term (current) drug therapy; Z79.82 Long term (current) use of aspirin
CPT/HCPCS: 73110; 73502; 73552; 76000; 80048; 80053; 82728; 83540; 83550; 85014; 85018; 85025; 86850; 86900; 86901; 93005; 96374; 96375; 97116; 97162; 97167; 97530; 97535; 99285; C1713